=== PATIENT | female | born 1990 | race African-American/Black ===

== ENCOUNTER → 2016-05-19 | Outpatient (CLI) | payer OTHER ==
--- NOTE | 2016-05-19 14:29 | KCIC ---
PROCEDURE Three-view cervical, three-view thoracic and two view lumbar spine HISTORY Acute back pain and neck pain. Arm weakness. COMPARISON None FINDINGS C-spine C1 through C7 are visualized on the lateral view as is alignment through C7-T1. No evidence of acute fracture or bone destruction. Disc spaces and alignment are intact. No abnormal prevertebral soft tissue swelling. Thoracic spine Visualized thoracic vertebrae appear intact without evidence of fracture or aggressive bone destruction. No evidence of paraspinal soft tissue swelling. There is a mild right convexity thoracic curvature. Lumbar spine No evidence of acute fracture. Vertebral body height and disc spaces are intact. No significant subluxation. Slight right convexity upper lumbar curvature. IMPRESSION No evidence of acute fracture or subluxation. Consider follow-up evaluation with MRI if symptoms persist in any of these regions. Electronically signed by: Asif Cisse MD (May 19, 2016 14:27:18)
== END | disposition home or self-care (01) ==
LOC: KCIC 12:02
PROVIDERS: ATTEND Physician Assistant Medical
DX: M54.9 Dorsalgia, unspecified (principal); R53.1 Weakness
CPT/HCPCS: 72040; 72072; 72100

== ENCOUNTER → 2016-05-21 | Outpatient (CLI) | payer OTHER ==
[~2016-05-21] MED LIST: GADOBUTROL 7.5 MMOL/7.5 ML VIAL IV ONE
--- NOTE | 2016-05-21 16:36 | KCIC ---
PROCEDURE MRI of the brain without and with contrast 05/21/2016 HISTORY Blurred vision in the left eye for 2 weeks. Headaches. TECHNIQUE Unenhanced T1 weighted sagittal and axial and FLAIR, T2 weighted and diffusion weighted axial images of the brain were obtained. After the intravenous administration off 5 cc of Gadavist, enhanced T1 weighted axial and coronal images of the brain were obtained. FINDINGS Comparison is made to a CT scan of the head dated 08/01/2008. The ventricles and sulci are within normal limits in size and configuration. No area of significant abnormal signal intensity is seen involving the brain parenchyma. No extra-axial fluid collection is seen. No abnormal area of contrast enhancement is noted. There is no evidence of acute ischemia/infarction. The orbits are within normal limits. The paranasal sinuses are clear. Normal flow voids are seen within the major vascular structures surrounding the brain parenchyma. IMPRESSION Negative study. Electronically signed by: Jerrod Gardner MD (May 21, 2016 16:36:02)
== END | disposition home or self-care (01) ==
LOC: KCIC MRI 15:04
PROVIDERS: ATTEND Physician Assistant Medical
DX: H53.8 Other visual disturbances (principal)
CPT/HCPCS: 70553; A9585

== ENCOUNTER → 2016-08-31 | Outpatient (CLI) | payer BC ==
--- NOTE | 2016-08-31 16:06 | RAD ---
PROCEDURE MRI thoracic spine without contrast. HISTORY Mid back pain, increasing. Fall in March. Right leg and arm numbness. Scoliosis. TECHNIQUE Sagittal T1, sagittal T2, sagittal STIR, axial T1, and axial T2 sequences are provided. COMPARISON None. FINDINGS Localizing study demonstrates mild dextro curvature centered in the lower thoracic spine. There is no subluxation. There is no worrisome marrow lesion. There is no marrow edema. There is no cord signal abnormality. There are tiny protrusions at T4-T5, T5-T6, and T6-T7. There is no high-grade canal or foraminal compromise at any level. 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 Electronically signed by: Jose Juan Babin MD (Aug 31, 2016 16:05:10)
== END | disposition home or self-care (01) ==
LOC: MRI 14:27
PROVIDERS: ATTEND Physician Assistant
DX: M51.34 Other intervertebral disc degeneration, thoracic region (principal)
CPT/HCPCS: 72146

== ENCOUNTER → 2016-11-09 | Outpatient (CLI) | payer BC ==
--- NOTE | 2016-11-09 16:55 | KCIC ---
Complete pelvic ultrasound. Clinical Indication: Pelvic pain. Comparison: None. TECHNIQUE: Real-time ultrasound imaging of the pelvis using transabdominal and transvaginal window is performed. Findings: Uterus measures 7.7 x 4.8 x 4.2 cm and is retroverted. No focal myometrial abnormality. Incidentally visualized bladder is unremarkable. The right ovary measures 3.8 x 2.3 x 2.6 cm. Normal blood flow in the ovaries. The left ovary measures 3.6 x 2 x 2.5 cm. Multiple follicles are seen in both ovaries. No evidence of adnexal mass. Mild cul-de-sac free fluid. Endometrial stripe is normal measuring 3 mm. IMPRESSION: 1. Uterus, endometrial stripe, and ovaries are normal. 2. Mild pelvic free fluid is probably physiologic. Electronically signed by: Giovany Burk MD (11/09/2016 4:51 PM)
== END | disposition home or self-care (01) ==
LOC: KCIC US 15:04
PROVIDERS: ATTEND Physician Assistant
DX: N85.2 Hypertrophy of uterus (principal); R10.2 Pelvic and perineal pain
CPT/HCPCS: 76830; 76856